=== PATIENT | female | born 1985 | race Asian ===

== ENCOUNTER 2024-04-15 23:50 | Emergency (ER) | payer OTHER, SELFPAY ==
[2024-04-15 23:52] VITALS: BP 117/79; PULSE 98; RESP 20; TEMP 36.9; O2SAT 98; BMI 36.0
--- NOTE | 2024-04-16 00:12 | ED.GENADULT ---
HPI - General Adult General Chief complaint: Ear/Nose/Throat Problem Stated complaint: Right ear pain Time Seen by Provider: 04/16/24 00:12 History of Present Illness HPI narrative: pt complains of right ear pain . no reported trauma. pain started Tuesday. Pain from unknown cause. No reported history of earaches. 38-year-old woman presenting to the emergency department with concern of right ear pain Has been congested for unspecified amount of time. Four days ago tried to clear her ear a little bit and had onset of pain. Has escalated a great deal over the last couple of days. Just unbearable now tonight. Has not had a fever. No drainage. Does feel like there is some fluid shifts that are occurring in the ear. No sore throat. No shortness of breath noted. No treatments attempted other than some Miranda ear drops looks like they contain a trivial amount of belladonna is leading ingredient. Sounds like these were very briefly relieving. Related Data Previous Rx's ?Medication ?Instructions ?Recorded amoxicillin 875 mg tablet 875 mg PO BID 8 days #16 tabs 04/16/24 Allergies Allergy/AdvReac Type Severity Reaction Status Date / Time No Known Drug Allergies Allergy Verified 04/15/24 23:57 Review of Systems Status of ROS: Reports: 6 or more systems reviewed and unremarkable except as noted in History and below Exam Narrative: Exam Narrative: Intermittently flinching in intense pain. Tearful. Right TM has some fullness, bulging on the posterior half of tympanic membrane. The tragus is tender. There is trace inflammation in the ear canal. She is sore to palpation underneath the ear as well. She is not tender to movement of the pinna. Left TM is faintly erythematous but with good light reflex. Transparent. Oropharynx is unremarkable. Neck is supple but there is pain to palpation under the right ear upper neck is noted. No lymphadenopathy. Lungs appear to be clear. Heart in elevated rate. Const: Vital Signs, click to edit/add: Vital Signs - 24 hr 04/15/24 23:52 Temperature 98.5 F Pulse Rate [Left P ulse Oximeter] 98 Respiratory Rate 20 Blood Pressure [Ri ght Upper Arm] 117/79 Pulse Oximetry 98 Oxygen Delivery Me thod Room Air Documenting provider has reviewed patient's vital signs: yes Course Vital Signs Vital signs: Initial Vital Signs Temperature 98.5 F 02/02/25 23:52 Temperature Source Temporal Artery Scan 04/15/24 23:52 Pulse Rate 98 04/15/24 23:52 Respiratory Rate 20 04/15/24 23:52 Blood Pressure 117/79 04/15/24 23:52 Blood Pressure Mean 91 04/15/24 23:52 Blood Pressure Position Sitting 04/15/24 23:52 Pulse Oximetry 98 04/15/24 23:52 Oxygen Delivery Method Room Air 04/15/24 23:52 Vital Signs Temperature 98.5 F 04/15/24 23:52 Pulse Rate 98 04/15/24 23:52 Respiratory Rate 20 04/15/24 23:52 Blood Pressure 117/79 04/15/24 23:52 Pulse Oximetry 98 04/15/24 23:52 Oxygen Delivery Method Room Air 04/15/24 23:52 Temperature 98.5 F 04/15/24 23:52 Pulse Rate 98 04/15/24 23:52 Respiratory Rate 20 04/15/24 23:52 Blood Pressure 117/79 04/15/24 23:52 Pulse Oximetry 98 04/15/24 23:52 Oxygen Delivery Method Room Air 04/15/24 23:52 Medications Administered Medications: Discontinued Medications Generic Name Dose Route Start Last Admin Trade Name Freq PRN Reason Stop Dose Admin Pseudoephedrine HCl 60 mg 04/16/24 00:24 04/16/24 00:43 Pseudoephedrine Hcl 30 Mg Tablet PO 04/16/24 00:25 60 mg ONCE ONE Administration Medical Decision Making MDM Narrative Medical decision making narrative: I am not convinced there is an otitis externa but but there does appear to be some mild inflammation and she is tender in some of these areas rounded expect otitis externa to be causing tenderness. Does not appear to be a perforation. I think drops could potentially be helpful. Primary pain I think is to distension of the tympanic membrane. Would focus on decongestion. Given pseudoephedrine here in the emergency department this late night. Discussed options for pain management otherwise. She will be driving home. See patient discharge plan for further discussion Stay well-hydrated even though might hurt to swallow. Sleep under the mist of a cool mist humidifier. Menthol vapors might be helpful. I would molded goods spot picker some 12 hours pseudoephedrine for decongestion. From [facility] prescribing prednisone to decrease swelling and improve drainage, Cortisporin drops as there appears to be some inflammation in your ear canal and Percocet simply for pain. I would take 2 Percocet right away when you get home. If prednisone is a little stimulating, diphenhydramine might help you sleep. Might also be drying for your ear congestion Can take up to 800 mg of ibuprofen or up to 1000 mg of acetaminophen per dose. These can be combined. Keep in mind that each tablet of Percocet contains 325 mg of acetaminophen. Sending in a prescription of amoxicillin as an antibiotic to fill in a couple of days if it still appears that your ear is a problem Discharge Plan Discharge Clinical Impression: Otalgia of right ear, Acute dysfunction of right eustachian tube Patient Disposition: Home, Self-Care Condition: Stable Instructions: Earache (ED) Additional Instructions: Stay well-hydrated even though might hurt to swallow. Sleep under the mist of a cool mist humidifier. Menthol vapors might be helpful. I would molded goods spot picker some 12 hours pseudoephedrine for decongestion. From [facility] prescribing prednisone to decrease swelling and improve drainage, Cortisporin drops as there appears to be some inflammation in your ear canal and Percocet simply for pain. I would take 2 Percocet right away when you get home. If prednisone is a little stimulating, diphenhydramine might help you sleep. Might also be drying for your ear congestion Can take up to 800 mg of ibuprofen or up to 1000 mg of acetaminophen per dose. These can be combined. Keep in mind that each tablet of Percocet contains 325 mg of acetaminophen. Sending in a prescription of amoxicillin as an antibiotic to fill in a couple of days if it still appears that your ear is a problem Activity Level: No Restrictions Discharge Diet: Regular Prescriptions: New amoxicillin 875 mg tablet 875 mg PO BID 8 Days Qty: 16 0RF Stand Alone Forms: [employer] Info Instructions
--- OUTSIDE RECORDS SUMMARY | 2024-04-16 00:33 | XMS_ITS | Clinical Summary ---
Author Organization [facility] Address [place], [place] [address] Care Team Providers Care Litigation Associate Name Role Phone Kelin Ho NP Primary Care Provider [phone] Allergies No known active allergies Medications diphenhydrAMINE (BENADRYL) 25 mg capsuleIndication s:Mild persistent allergic asthma Take 1 capsule by mouth every 4 hours if needed. 0 6 Active inhalational spacing deviceIndications :Mild intermittent reactive airway disease without complication For home use. 1 Device 0 Active acetaminophen (TYLENOL EXTRA STRGTH) 500 mg tablet Take 500 mg by mouth. Active loratadine (CLARITIN) 10 mg tablet Take 10 mg by mouth. Active montelukast (SINGULAIR) 10 mg tabletIndications :Mild persistent reactive airway disease without complication Take 1 Tablet (10 mg) by mouth at bedtime. 90 Tablet 3 4 Active predniSONE (DELTASONE) 20 mg tabletIndications :Mild intermittent reactive airway disease without complication Take 2 tablets in morning before meals for 3 days for asthma exacerbations. 18 Tablet 3 4 Active albuterol HFA (Ventolin HFA) 90 mcg/actuation inhalerIndication s:Mild persistent reactive airway disease without complication Inhale 2 Puffs by mouth 4 times daily if needed for Shortness Of Breath or Wheezing. 3 Each 3 4 Active Active Problems Problem Noted Date Diagnosed Date Hypertriglyceridemia 05/04/2020 Prediabetes 05/04/2020 Vitamin D deficiency 05/04/2020 Tobacco abuse 05/04/2020 Reactive airway disease without complication Mild persistent allergic asthma 11/12/2015 Immunizations Name Administration Dates Next Due Hepatitis A (Adult) 12/08/1999 Hepatitis A, Unspecified 12/08/1999 Hepatitis B (Adult) 01/05/2000,12/08/1999 Hepatitis B, Unspecified 05/30/2001,09/13,09/23/2000,1999,12/08/1999 Td, Preservative Free (age > = 7 Years) 02/25/2005 Tdap 05/06/2021,02/25/2005 Family History Medical History Relation Name Comments Other Mother hepatitis b (ma t grandfather too) Relation Name Status Comments Mother Social History Tobacco Use Types Packs/Day Years Used Date Smoking Tobacco: Former Cigarettes Smokeless Tobacco: Never Tobacco Cessation:Counseling Given: Not Answered Comments:Social Smoker Alcohol Use Standard Drinks/Week Comments Yes 0 (1 standard drink = 0.6 oz pur e alcohol) on weekends. 5-10 weekend PHQ-2 Answer Date Recorded PHQ-2 TOTAL SCORE 0 11/25/2023 Social Connections Answer Date Recorded Do you often feel lonely or isolated from those around you? 0 11/25/2023 Financial Resource Strain Answer Date R ecorded Difficulty of Paying Living Expenses 3 11/25/2023 Difficulty of Paying Living Expenses Not on file 11/25/2023 Food Insecurity Answer Date Recorded Do you worry your food will run out before you are able to buy more? 1 11/25/2023 Transportation Needs Answer Date Record ed Does lack of transportation keep you from medica l appointments? 1 11/25/2023 Does lack of transportation keep you from work, meetings or getting things that you need? 1 11/25/2023 Housing Stability Answer Date Recorded What is your housing situation today? 1 11/25/2023 Utilities Answer Date Recorded Do you have trouble paying f or utilities (for example, heat, electricity, water, phone)? 1 11/25/2023 Comments No Sex and Gender Information Value Date Recorded Sex Assigned at Not on file Legal Sex Female 9:22 AM CDT Gender Identity Female 09/01/2019 1:53 AM CDT Sexual Orientation Straight 09/01/2019 1: 53 AM CDT Obstetrics History Para Term AB IAB SAB Ectopic Multiple Livin g Live Births 1 0 0 1 1 0 Date Outcome GA Total Labor Labor/2nd/3rd Weight Sex Type Anes PTL Arlet A1 A5 Name Clin SAB Last Filed Vital Signs Vital Sign Reading Time Taken Comments Blood Pressure 106/76 11/25/2023 1:08 PM CDT Pulse 106 11/25/2023 1:08 PM CDT Temperature 36.6 C (97.8 F) 10/05/2018 10:20 AM CDT Respiratory Rate 24 10/05/2018 10:20 AM CDT Oxygen Saturation 97% 11/25/2023 1:08 PM CDT Inhaled Oxygen Concentration - - Weight 92.1 kg (203 lb) 11/25/2023 1:08 PM CDT Height 163 cm (5' 4.17) 11/25/2023 1:08 PM CDT Body Mass Index 34.66 11/25/2023 1:08 PM CDT Plan of Treatment Health Maintenance Due Date Last Done Comments Pap test for age 21-65 11/29/2008 COVID-19 vaccine series ( season) 2023 Influenza for age 9-49 11/13/2023 BMI (ht and wt on same day) for age 18+ 11/24/2024 11/25/2023, 05/01/2020, 08/16/2018, Additional history exists Depression screening for age 12+ 11/24/2024 11/25/2023, 05/05/2020, 05/01/2020, Additional history exists Tetanus booster 05/06/2031 05/06/2021, 02/11, 02/25/2005 Tdap Completed 05/06/2021, 02/25/2005 HIV for age 15-65 Completed 11/25/2023 Hepatitis C screening for age 18-79 Completed 11/25/2023 Pneumococcal series for age 6-49 Aged Out No longer eligible based on patient's age to complete this topic Procedures Procedure Name Priority Date/Time Associated Diagnosis Comments ANTI HIV 1/2 Routine 11/25/2023 1:31 PM CDT Screening for HIV without presence of risk factors ANTI HCV Routine 11/25/2023 1:31 PM CDT Encounter for HCV screening test for low risk patient from Last 3 Months or Most Recently Relevant to Health Maintenance Results * ANTI HCV (11/25/2023 1:31 PM CDT) HEPATITIS C ANTIBODY Non-Reacti ve Non-React mitesh 11/25/2023 11:18 PM CDT [facility] Comment:Please note, per www .CDC.gov: If a patient is known to be at high risk of HCV infection, or is symptomatic, and the physician's suspicion of HCV infection is high, HCV RNA testing is often employed and is of diagnostic value, even after an initial negative anti-HCV test result. Blood BLOOD SPECIMEN / Unknown Venipuncture / Unknown 11/25/2023 1:31 PM CDT 11/25/2023 1:31 PM CDT Kelin Ho NP SEND OUTS Final Res ult Performing Organization Address [facility]/ZIP Co de Phone Number [facility] [address] [place] [address], * ANTI HIV 1/2 (11/25/2023 1:31 PM CDT) HIV-1/HIV-2 SCREEN Non-Reacti ve Non-Reacti ve 11/25/2023 11:23 PM CDT [facility] Comment:HIV-1 p24 and HIV-1/ HIV-2 Ab Not Detected. Blood BLOOD SPECIMEN / Unknown Venipuncture / Unknown 11/25/2023 1:31 PM CDT 11/25/2023 1:31 PM CDT Kelin Ho NP SEND OUTS Final Res ult [facility] [address] [place] [address], from Last 3 Months or Most Recently Relevant to Health Maintenance Insurance MEDICA ELECT Care Teams Litigation Associate Relationship Specialty [place] [id number] [place] [address] PCP - General Nurse Practitioner 11/17/23
--- OUTSIDE RECORDS SUMMARY | 2024-04-16 00:33 | XMS_ITS | Clinical Summary ---
Author Organization [facility] Address [address] [place] [id number] Care Team Providers Care Typewriter Ribbon Winder Name Role Phone No Ref-Primary, Physician Primary Care Provider Allergies No known active allergies Medications Vit-Fe Fumarate-FA ( MULTIVITAMIN PLUS IRON) 27-1 MG TABS Take by mouth daily Active acetaminophen (TYLENOL) 500 MG tablet Take 500 mg by mouth every 6 hours as needed for mild pain Active calcium carbonate 750 MG CHEW Take 750 mg by mouth daily Active loratadine (CLARITIN) 10 MG tablet Take 10 mg by mouth daily as needed for allergies Active montelukast (SINGULAIR) 10 MG tablet Take 10 mg by mouth daily as needed Active albuterol (PROAIR HFA/PROVENTIL HFA/VENTOLIN HFA) 108 (90 Base) MCG/ACT inhaler Inhale 1-2 puffs into the lungs every 6 hours as needed for shortness of breath / dyspnea or wheezing Active ibuprofen (ADVIL/MOTRIN) 800 MG tabletIndication s: delivery delivered Take 1 tablet (800 mg) by mouth every 8 hours as needed for other (cramping) 90 tablet 2 Active oxyCODONE (ROXICODONE) 5 MG tabletIndication s: delivery delivered Take 1-2 tablets (5-10 mg) by mouth every 6 hours as needed for breakthrough pain 15 tablet 2 Active Active Problems Problem Noted Date Diagnosed Date Indication for care in labor or delivery 022 Social History Tobacco Use Types Packs/Day Years Used Date Smoking Tobacco: Never Assessed [place] Depression Scale Answer Date Recorded Last EPDS Total Score Not on file 08/08/2021 The thought of harming myself has occurred to me . Never 08/08/2021 Adolescent Education Answer Date Record ed Getting School Help Needed Not on file 12/19 Comments No Sex and Gender Information Value Date Recorded Sex Assigned at Not on file Legal Sex Female 3:14 AM CHOKER SETTER Gender Identity Not on file Sexual Orientation Not on file Last Filed Vital Signs Vital Sign Reading Time Taken Comments Blood Pressure 116/66 08/09/2021 9:05 AM CDT Pulse 80 08/09/2021 9:05 AM CDT Temperature 36.9 C (98.4 F) 08/09/2021 9:05 AM CDT Respiratory Rate 18 08/09/2021 9:05 AM CDT Oxygen Saturation 99% 08/08/2021 8:41 PM CDT Inhaled Oxygen Concentration - - Weight 109.3 kg (241 lb) 08/04/2021 11:00 PM CDT Height 157.5 cm (5' 2) 08/05/2021 9:00 AM CDT Body Mass Index 44.08 08/04/2021 11:00 PM CDT Plan of Treatment Health Maintenance Due Date Last Done Comments ADVANCE CARE PLANNING 1987 ANNUAL REVIEW OF HM ORDERS 1987 YEARLY PREVENTIVE VISIT 11/29/1990 HEPATITIS C SCREENING 11/29/2005 PAP 11/29/2008 GLUCOSE 12/14/2012 12/14/2009, 11/20/2009 COVID-19 Vaccine ( - season) 2023 INFLUENZA VACCINE (#1) 2023 PHQ-2 (once per calendar year) 2024 DTAP/TDAP/TD IMMUNIZATION (4 - Td or Tdap) 05/06/2031 05/06/2021, 03/18/2018, 02/25/2005, Additional history exists ZOSTER IMMUNIZATION (1 of 2) 11/29/2037 RSV VACCINE (1 - 1-dose 75+ series) 11/29/2062 HEPATITIS B IMMUNIZATION Completed 002, 10/11/2000, 09/23/2000, Additional history exists HIV SCREENING Completed 12/17/2020 HPV IMMUNIZATION Aged Out No longer e ligible based on patient's age to complete this topic MENINGITIS IMMUNIZATION Aged Out No l onger eligible based on patient's age to complete this topic Pneumococcal Vaccine: Pediatrics (0 to 5 Years) and At-Risk Patients (6 to 49 Years) Aged Out No longer eligible based on patient's age to complete this topic RSV MONOCLONAL ANTIBODY Aged Out No l onger eligible based on patient's age to complete this topic Procedures Procedure Name Priority Date/Time Associated Diagnosis Comments HIV 1&2 ANTIBODY (EXTERNAL RESULT) Routine 12/17/2020 10:20 PM CDT BASIC METABOLIC PANEL STAT 12/14/2009 4:30 PM CDT from Last 3 Months or Most Recently Relevant to Health Maintenance Results * HIV-1 Antibody (External Result) (12/17/2020 10:20 PM CDT) HIV 1&2 Antibody (External) Negative Nonreactive EXTERNAL LAB 12/17/2020 10:2 0 PM CDT Patient Reported LAB - HIM EXTERNAL RESULT Final Result EXTERNAL LAB External Lab * (ABNORMAL) Basic metabolic panel (12/14/2009 4:30 PM CDT) Sodium 134 133 - 144 mmol/L [facility] Potassium 4.2 3.4 - 5.3 mmol/L [facility] Chloride 105 94 - 109 mmol/L [facility] Carbon Dioxide 25 20 - 32 mmol/L [facility] Glucose 70 60 - 99 mg/dL [facility] Urea Nitrogen 9 5 - 24 mg/dL [facility] Creatinine 0.50(L) 0.52 - 1.04 mg/dL [facility] Comment:New IDMS-traceable c alibration beginning 07/13/07 GFR Estimate >90 >60 mL/min/1.7 m2 [facility] GFR Estimate If Black >90 >60 mL/min/1.7 m2 [facility] Calcium 9.0 8.5 - 10.4 mg/dL [facility] Anion Gap 4.2(L) 6 - 17 mmol/L [facility] 12/14/2009 4:30 PM CDT 12/14/2009 4:15 PM CDT us Chuy Nuñez MD LAB - BLOOD ORDERABLES Final Result [facility] from Last 3 Months or Most Recently Relevant to Health Maintenance Insurance MED[employer] ELECT [employer] Advance Directives For more information, please contact: [phone] * Full Code (Latest Code Status on File) Date Activated Date Inactivated Comments 08/04/2021 8:47 PM 08/09/2021 2:48 PM All basic an d advanced life-sustaining interventions are performed as appropriate Question Answer Comments Code status determined by: Discussion with keegan nt/ legal decision maker Care Teams Typewriter Ribbon Winder Relationship Specialty Start Date End Date No Ref-Primary, Physician PCP - General 05/03/20
--- OUTSIDE RECORDS SUMMARY | 2024-04-16 00:33 | XMS_ITS | Encounter Summary ---
Author Organization [facility] Address [address] [address] Care Team Providers Care Email Designer Name Role Phone Bell Caballero MD Primary Care Provider [phone] Encounter Details Date Type Department Care Team (Late st Contact Info) Description 06/01/2017 Refill Order [address] [id number] Bell Caballero MD [address] [place], [place] [id number] Social History Tobacco Use Types Packs/Day Years Used Date Smoking Tobacco: Never Smokeless Tobacco: Never Alcohol Use Standard Drinks/Week Comments Yes 0 (1 standard drink = 0.6 oz pur e alcohol) social Sex and Gender Information Value Date Recorded Sex Assigned at Not on file Gender Identity Not on file Sexual Orientation Not on file documented as of this encounter Nursing Notes * Xena Lee, RN - 06/01/2017 7:39 PM CDT Reviewed and patient notified. Xena Lee RN/[facility] documented in this encounter Plan of Treatment Not on file documented as of this encounter Visit Diagnoses Diagnosis Encounter for long-term (current) use of medications- Primary Encounter for long-term (current) use of other medications documented in this encounter Care Teams Email Designer Relationship Specialty Start Date End Date Bell Caballero MD [address] [place] [address] PCP - General Family Practice 07/24/13 documented as of this encounter
--- OUTSIDE RECORDS SUMMARY | 2024-04-16 00:33 | XMS_ITS | Clinical Summary ---
Author Organization [facility] Address [address] [address] Care Team Providers Care Appeals Specialist Name Role Phone Bell Caballero MD Primary Care Provider [phone] Source Comments You are receiving this document as you are listed as the primary care provider,follow-up provider, or the patient has been referred to you for consultation.This is in compliance with the Medicare and[facility] Incentive Program,which states Providers who transition their patient to another setting of careor provider of care or refers their patient to another provider of care shouldprovide summary care record for each transition of care or referral. [employer] Allergies No known active allergies Medications Medication Sig Dispensed Refills Start Date End Date Status diphenhydrAMINE (AKA BENADRYL) 25 MG capsule Take 25 mg by mouth every 6 hours as needed for Itching. 10/19/2013 Active VENTOLIN HFA 108 (90 Base) MCG/ACT inhaler INHALE 2 PUFFS BY MOUTH EVERY 4 HOURS NEEDED FOR SHORTNESS OF BREATH. MAX 12 PUFFS IN 24 HOURS 54 g 3 06/23/2017 Active fexofenadine (MIRIAM) 60 MG tablet Take 60 mg by mouth two times daily as needed. Active fluticasone (FLONASE) 50 MCG/ACT nasal solutionIndications :Bronchitis Place 2 Sprays into both nostrils daily. 16 g 11 03/03/2018 Active Additional Information Patient not taking.Reported on 06/08/2018 oxyCODONE (ROXICODONE) 5 MG immediate release tablet Take 1-2 Tablets by mouth every 4 hours as needed for Pain. 15 Tablet 03/18/2018 Active Additional Information Patient not taking.Reported on 06/08/2018 ibuprofen (MOTRIN) 600 MG tablet Take 1 Tablet by mouth every 6 hours as needed for Pain. 20 Tablet 03/18/2018 Active Additional Information Patient not taking.Reported on 06/08/2018 Active Problems Problem Noted Date Diagnosed Date Hepatitis B infection 10/13/2012 Screening for STDs (sexually transmitted disease s) 05/26/2012 Dysmenorrhea 01/26/2006 Resolved Problems Problem Noted Date Diagnosed Date Resolved Date Abdominal pain, generalized 10/15/2012 09/17/2014 Immunizations Name Administration Dates Next Due HepA Adult (19+ yrs) 12/08/1999 HepB Adult (Engerix-B, 20+ y rs, 3 dose series) 01/05/2000,12/08/1999 HepB, Unspecified Formulation 10/11/2000 ,09/23/2000,01/05/2000,1999 MMR 12/08/1999 Refusal To Vaccinate 11/04/2005 TDAP (BOOSTRIX) 02/25/2005 Td (7+ yrs) 02/25/2005 Tdap 03/18/2018 Social History Tobacco Use Types Packs/Day Years [...] Sign Reading Time Taken Comments Blood Pressure 102/84 05/03/2020 11:19 AM DATA CENTER PROJECT MANAGER Pulse 96 05/03/2020 11:19 AM DATA CENTER PROJECT MANAGER Temperature 36.2 C (97.1 F) 05/03/2020 11:19 AM DATA CENTER PROJECT MANAGER Respiratory Rate 14 05/03/2020 11:19 AM DATA CENTER PROJECT MANAGER Oxygen Saturation 97% 06/08/2018 1:34 PM CDT Inhaled Oxygen Concentration - - Weight 92.1 kg (203 lb) 06/08/2018 1:34 PM CDT Height 163.8 cm (5' 4.5) 06/08/2018 1:34 PM CDT Body Mass Index 34.31 06/08/2018 1:34 PM CDT Plan of Treatment Health Maintenance Due Date Last Done Comments HEP B CARRIER: DNA QUANT 1987 HEP B CARRIER: ULTRASOUND 1987 HepA (2 of 2 - Risk 2-dose series) 06/06/2000 12/08/1999 Adult Preventive Visit 11/29/2005 Cervical Cancer Screening Due 05/05/2006 05/04/2006 HEP B CARRIER: ALT 10/29/2020 05/01/2020, 0 10/13/2012, 08/22/2012 COVID-19 Vaccine ( season) 2023 Influenza (#1) 2023 DTaP/Tdap/Td (3 - Tdap) 03/18/2028 03/18/19 19, 02/25/2005, 02/25/2005, Additional history exists Zoster/Shingles (1 of 2) 11/29/2037 HepB Completed 10/11/2000, 09/11, 01/05/2000, Additional history exists HIV Screening (Preventive Services) Completed 10/13/2012 Hep C Screening (Preventive Services) Completed 10/13/2012 HPV Vaccine Aged Out No longer eligi ble based on patient's age to complete this topic Hib Aged Out No longer eligi ble based on patient's age to complete this topic IPV (Polio) Aged Out No longer eligi ble based on patient's age to complete this topic MCV4 Aged Out No longer eligi ble based on patient's age to complete this topic Pneumococcal Aged Out No longer eligi ble based on patient's age to complete this topic Procedures Procedure Name Priority Date/Time Associated Diagnosis Comments LIVER PANEL(HEPATIC FUNCTION PANEL) Routine 10/13/2012 12:16 PM CDT Hepatitis B infection HIV ANTIBODY Routine 10/13/2012 12:16 PM CDT Hepatitis B infection HEPATITIS C ANTIBODY, WITH REFLEX Routine 10/13/2012 12:16 PM CDT ANATOMICAL PATH LIQUID BASED Routine 05/04/2006 10:59 AM DATA CENTER PROJECT MANAGER from Last 3 Months or Most Recently Relevant to Health Maintenance Results * LIVER PANEL(HEPATIC FUNCTION PANEL) (10/13/2012 12:16 PM CDT) Alkaline Phosphatase 55 38 - 126 U/L [facility] Bilirubin, Total 0.5 0.2 - 1.3 mg/dl [facility] Bilirubin, Direct 0.0 0.0 - 0.3 mg/dl [facility] ALT (SGPT) 48 0 - 69 U/L [facility] AST (SGOT) 36 0 - 55 U/L [facility] Protein, Total 7.3 6.3 - 8.2 g/dl [facility] Albumin 4.2 3.5 - 5.0 g/dl [facility] A/G Ratio, calc. 1.4 >1.0 [facility] 10/13/2012 12:1 6 PM CDT 10/13/2012 12:23 PM CDT Narrative [facility] - 10/13/2012 4:42 PM CDT Performed at [facility], [address] [place] [address] Nicolasa Stevens APRN, PIANO TEACHER LAB_1 Performing Organization Address [facility] de Phone Number [facility] [phone] * HEPATITIS C ANTIBODY, WITH REFLEX (10/13/2012 12:16 PM CDT) Anti-HCV Negative (Non Reactive) [facility] Comment:Does Not Rule Out In fection with HCV 10/13/2012 12:1 6 PM CDT 10/13/2012 12:23 PM CDT Narrative [facility] - 10/16/2012 11:31 AM CDT Performed at [facility], [address] [place] [address] Nicolasa Stevens APRN, PIANO TEACHER LAB_1 Performing Organization Address [facility] de Phone Number [facility] [phone] * HIV ANTIBODY (10/13/2012 12:16 PM CDT) HIV 1/2 Antibody Negative (Non Reactive) [facility] Comment: HIV Antibody testing may be falsely negative during the window period. If the patient has had recent exposure (within the past four weeks), consider contacting Infectious Diseases for clarification. 10/13/2012 12:1 6 PM CDT 10/13/2012 12:23 PM CDT Narrative [facility] - 10/13/2012 5:00 PM CDT Performed at [facility], [address] [place] [id number] Nicolasa Stevens APRN, CNP LAB_1 Performing Organization Address [facility] de Phone Number [facility] [phone] * Pap Smear (05/04/2006 10:59 AM DATA CENTER PROJECT MANAGER) PAP Smear Liquid Based SEE TEXT No normal range HP CONVERSION Comment: Patient: AURELIO PACHECO CERVICAL CYTOLOGY REPORT Pathology # [id number] Date Obtained: Date Received: CYTOLOGIC IMPRESSION: Atypical squamous cells of undetermined significance (ASCUS). Reflex HPV DNA has been ordered, and will be performed and reported separately. Verified 05/11/06 by: Edd Augustin M.D. (electronic signature) ADDITIONAL DATA LMP: CLINICAL HIST LIQUID BASED PAP CERVICAL SPECIMEN ADEQUACY: Satisfactory. ENDOCERVICAL CELLS: Present. 05/04/2006 10:5 9 AM DATA CENTER PROJECT MANAGER Deshaun Claros PA-C LAB_1 Performing Organization Address [facility] Co de Phone Number HP CONVERSION from Last 3 Months or Most Recently Relevant to Health Maintenance Care Teams Appeals Specialist Relationship Specialty Start Date End Date Bell Caballero MD [address] [place] [id number] PCP - General Family Practice 07/24/13
--- OUTSIDE RECORDS SUMMARY | 2024-04-16 00:33 | XMS_ITS | Clinical Summary ---
Author Organization [facility] Address [address] [place] [address] Care Team Providers Care Vamper Name Role Phone Unavailable Primary Care Provider Unavailabl e Source Comments PLEASE NOTE, if this patient is a minor, it may be UNLAWFUL to discuss sensitive information that is contained in these records (such as FAMILY PLANNING, MENTAL HEALTH or SUBSTANCE ABUSE) with the minor patient's parent or other person without the patient's specific authorization.[facility] Active Problems Problem Noted Date Diagnosed Date Hepatitis B virus infection 10/13/2012 Screening for STDs (sexually transmitted disease s) 05/26/2012 Dysmenorrhea 01/26/2006 Immunizations Name Administration Dates Next Due Hep A, adult 12/08/1999 Hep B, Adult/Adol (ENERGIX/RECOMBIVAX) 01/05/2000,12/08/1999 Hep B, Unspecified 10/11/2000, 1,01/05/2000,1999 MMR (MMR II/Priorix) 12/08/1999 TDAP 03/18/2018,02/25/2005 Td (adult) unspecified 02/25/2005 Social History Tobacco Use Types Packs/Day Years Used Date Smoking Tobacco: Never Assessed Social Connections Answer Date Recorded Social Connections and Isolation 0 11/21/2019 Financial Resource Strain Answer Date R ecorded Financial Resource Strain 0 2019 Stress Answer Date Recorded Stress 0 11/21/2019 Physical Activity Answer Date Recorded Physical Activity 0 11/21/2019 Food Insecurity Answer Date Recorded Food 0 11/21/2019 Transportation Needs Answer Date Record ed Transportation 0 11/21/2019 Housing Stability Answer Date Recorded Housing 0 11/21/2019 Safety and Environment Answer Date Kenn rded Safety 0 11/21/2019 Utilities Answer Date Recorded Utilities 0 11/21/2019 Employment Answer Date Recorded Employment 0 11/21/2019 Comments Unknown Sex and Gender Information Value Date Recorded Sex Assigned at Not on file Legal Sex Female 7:12 AM PDT Gender Identity Not on file Sexual Orientation Not on file Plan of Treatment Not on file
--- OUTSIDE RECORDS SUMMARY | 2024-04-16 00:33 | XMS_ITS | Referral Summary ---
Author Organization [facility] Address [address] [place] [id number] Care Team Providers Care Crabbing Machine Operator Name Role Phone No Ref-Primary, Physician Primary [...] Years Used Date Smoking Tobacco: Never Assessed [place] Depression Scale Answer Date Recorded Last EPDS Total Score Not on file 08/08/2021 The thought of harming myself has occurred to me . Never 08/08/2021 Adolescent Education Answer Date Record ed Getting School Help Needed Not on file 12/19 Comments No Sex and Gender Information Value Date Recorded Sex Assigned at Not on file Legal Sex Female 3:14 AM TRACTOR ENGINE ASSEMBLER Gender Identity Not on file Sexual Orientation [...] 08/04/2021 11:00 PM CDT Plan of Treatment Not on file Procedures Procedure Name Priority Date/Time Associated Diagnosis Comments HIV 1&2 ANTIBODY (EXTERNAL RESULT) Routine 12/17/2020 10:20 PM CDT BASIC METABOLIC PANEL STAT 12/14/2009 4:30 PM CDT from Last 3 Months or Most Recently Relevant to Health Maintenance Results * HIV-1 Antibody (External Result) (12/17/2020 10:20 PM CDT) HIV 1&2 Antibody (External) Negative Nonreactive EXTERNAL LAB 12/17/2020 10:2 0 PM CDT us Patient Reported LAB - [facility] EXTERNAL RESULT [...] Advance Directives For more information, please contact: [phone] * Full Code (Latest Code Status on File) Date Activated Date Inactivated Comments 08/04/2021 8:47 PM 08/09/2021 2:48 PM All basic an d advanced life-sustaining interventions are performed as appropriate Question Answer Comments Code status determined by: Discussion with keegan nt/ legal decision maker Care Teams Crabbing Machine Operator Relationship Specialty Start Date End Date No Ref-Primary, Physician PCP - General 05/03/20
--- OUTSIDE RECORDS SUMMARY | 2024-04-16 00:33 | XMS_ITS | Encounter Summary ---
Author Organization [facility] Address [address], [place] [address] Care Team Providers Care Photoradio Operator Name Role Phone Bell Caballero MD Primary Care Provider [phone] Encounter Details Date Type Department Care Team (Late st Contact Info) Description 02/21/2016 Refill Order [address] [address] Bell Caballero MD [address] [place], [place] [id number] Social History Tobacco Use Types Packs/Day Years Used Date Smoking Tobacco: Never Smokeless Tobacco: Never Alcohol Use Standard Drinks/Week Comments Yes 0 (1 standard drink = 0.6 oz pur e alcohol) social Sex and Gender Information Value Date Recorded Sex Assigned at Not on file Gender Identity Not on file Sexual Orientation Not on file documented as of this encounter Nursing Notes * Patricia Calloway CMA - 02/23/2016 12:41 PM CST Letter sent to pt. Patricia Calloway CMA 02/23/2016, 12:41 PM GATHERER documented in this encounter Plan of Treatment Not on file documented as of this encounter Visit Diagnoses Diagnosis Encounter for long-term (current) use of medications- Primary Encounter for long-term (current) use of other medications documented in this encounter Care Teams Photoradio Operator Relationship Specialty Start Date End Date Bell Caballero MD [address] [place] [address] PCP - General Family Practice 07/24/13 documented as of this encounter
[2024-04-16] MEDS: PSEUDOEPHEDRINE HCL 30 MG TABLET 60 MG PO (00:43)
== END 2024-04-16 00:44 | disposition home or self-care (01) ==
LOC: ED 04-16 00:31
PROVIDERS: Emergency Provider Family Medicine
DX: H69.81 Other specified disorders of Eustachian tube, right ear (principal)
CPT/HCPCS: 99283; A9270